=== PATIENT | male | born 1965 | race Two or more races ===

== ENCOUNTER → 2016-06-12 | Outpatient (CLI) | payer BC, OTHER ==
[2016-06-12 09:20] VITALS: BP 160/94
[2016-06-12 12:37] LABS: Basophils # (auto) 0.1 uL; Basophils % (auto) 0.6 % (0.0-2.0); Eosinophils # (auto) 0.3 uL; Eosinophils % (auto) 2.7 % (0.0-7.0); Hematocrit 43.7 % (41.0-53.0); Hemoglobin 14.4 g/dL (13.5-17.5); Lymphocytes # (auto) 2.2 uL; Lymphocytes % (auto) 22.9 % (10.0-50.0); Mean Corpuscular Hemoglobin 28.7 pg (28.0-32.0); Mean Corpuscular Hgb Conc. 32.9 g/dL (32.0-36.0); Mean Corpuscular Volume 87.2 fL (80.0-100.0); Mean Platelet Volume 7.9 fL (7.4-10.4); Monocytes # (auto) 0.5 uL; Monocytes % (auto) 4.9 % (0.0-12.0); Neutrophils # (auto) 6.6 uL; Neutrophils % (auto) 68.9 % (37.0-80.0); Platelet Count (auto) 341 10^3/uL (140-450); Red Cell Distribution Width 14.1 % (11.6-16.0); White Blood Cell 9.6 10^3/uL (4.4-10.8)
[2016-06-12 12:52] LABS: INR 1.08 (0.9-1.15); Partial Thromboplastin Time 27.7 sec (22.64-33.71); Prothrombin Time 11.1 sec (9.37-12.3)
[2016-06-12 13:04] LABS: BUN/Creatinine Ratio 12.2; Calcium 8.7 mg/dL (8.5-10.1); Potassium 3.1 mmol/L (3.5-5.1)
== END | disposition home or self-care (01) ==
LOC: Rad HDHVI 09:12
PROVIDERS: ATTEND Internal Medicine Cardiovascular Disease
DX: I10 Essential (primary) hypertension (principal); D64.9 Anemia, unspecified; R79.1 Abnormal coagulation profile
CPT/HCPCS: 36415; 71020; 80048; 85025; 85049; 85610; 85730; G0463

== ENCOUNTER 2016-06-15 08:35 | Inpatient (IN) | payer BC, OTHER ==
[~2016-06-15] VITALS: Ht 180.3 cm; Wt 119.3 kg
[~2016-06-15 08:35] MED LIST: AMLO10TA2 PO; ATOR10TA PO; BENA40TA2 PO; CARV80CA PO; CYCL1TAB18 PO; FURO40TA4 PO; IOHEXOL 350 MG/ML 100ML IJ ONE; LIDOCAINE 2%HCL (LOCAL ANESTH.) INJ 20ML MDV ONE; LOSA100T27 PO; METF-316 PO; NIAC500T71 PO; POTA20TA53 PO; TRAM100T37 PO
[2016-06-15] MEDS ORDERED: MIDAZOLAM HCL 1MG/1ML-2 ML VIAL ONE (09:48)
[2016-06-15] MEDS ORDERED: ANGIOMAX 250 MG VIAL IV ONE (09:48)
[2016-06-15] MEDS ORDERED: fentaNYL CITRATE 100 MCG/2 ML VL ONE (09:48)
[2016-06-15] MEDS ORDERED: SODIUM CHL 0.9% 50 ML ONE (09:49)
[2016-06-15] MEDS ORDERED: SODIUM CHLORIDE 0.9% 1,000 ML IV SCH (10:54)
[2016-06-15] MEDS ORDERED: NITROGLYCERIN 0.4 MG SL TAB SL PRN (11:00)
[2016-06-15] MEDS ORDERED: HYDROcodone-ACET 5/325MG TAB PO PRN (11:00)
[2016-06-15] MEDS ORDERED: ACETAMINOPHEN 500 MG TAB PO PRN (11:00)
[2016-06-15] MEDS ORDERED: TICAGRELOR 90 MG TAB PO ONE (11:00)
[2016-06-15] MEDS ORDERED: MORPHINE SULF INJ 2 MG/ML SYRINGE 1ML IV PRN (11:00)
[2016-06-15] MEDS ORDERED: TICAGRELOR 90 MG TAB ONE (11:02)
[2016-06-15] MEDS ORDERED: ASPirin 325 MG TAB ONE (11:08)
[2016-06-15] MEDS ORDERED: ASPirin 81 mg TAB PO ONE (11:15)
[2016-06-15 11:47] VITALS: BP 120/73
[2016-06-15 16:59] VITALS: BP 154/92
[2016-06-15] MEDS: TICAGRELOR 90 MG TAB PO SCH (21:53)
[2016-06-15 21:56] VITALS: BP 155/97
[2016-06-16 05:15] VITALS: BP 153/81
[2016-06-16 09:00] VITALS: BP 160/90
[2016-06-16] MEDS: TICAGRELOR 90 MG TAB PO SCH (09:55)
[2016-06-16 10:00] VITALS: BP 160/90
[2016-06-16] MEDS ORDERED: ASPirin 81 mg TAB PO SCH (10:00)
== END 2016-06-16 10:55 | disposition home or self-care (01) | DRG 247 ==
LOC: CATH 08:35 → TELE-CENTR 08:36
PROVIDERS: ADMIT Internal Medicine Cardiovascular Disease; ATTEND Internal Medicine Cardiovascular Disease
PROC: 027034Z Dilation of Coronary Artery, One Artery with Drug-eluting Intraluminal Device, Percutaneous Approach (ICD-10-PCS; principal; 2016-06-15)
PROC: 4A023N7 Measurement of Cardiac Sampling and Pressure, Left Heart, Percutaneous Approach (ICD-10-PCS; 2016-06-15)
PROC: B2111ZZ Fluoroscopy of Multiple Coronary Arteries using Low Osmolar Contrast (ICD-10-PCS; 2016-06-15)
DX: I25.10 Atherosclerotic heart disease of native coronary artery without angina pectoris (principal); I10 Essential (primary) hypertension; E11.21 Type 2 diabetes mellitus with diabetic nephropathy; E11.40 Type 2 diabetes mellitus with diabetic neuropathy, unspecified; E11.69 Type 2 diabetes mellitus with other specified complication; E66.9 Obesity, unspecified; E78.5 Hyperlipidemia, unspecified; Z82.49 Family history of ischemic heart disease and other diseases of the circulatory system; Z83.3 Family history of diabetes mellitus; Z68.36 Body mass index [BMI] 36.0-36.9, adult
CPT/HCPCS: 92928; 93458; J2250

== ENCOUNTER → 2016-11-01 | Outpatient (CLI) | payer BC, OTHER ==
[~2016-11-01] VITALS: Ht 177.8 cm; Wt 120.2 kg
[~2016-11-01] MED LIST changes: +ADENOSINE 101 MG in GIVE UN-DILUTED 0 ML IV ONE; +ADENOSINE 90 MG/30 ML INJ IV ONE; -BENA40TA2 PO; +BENA40TA7 PO; -IOHEXOL 350 MG/ML 100ML IJ ONE; -LIDOCAINE 2%HCL (LOCAL ANESTH.) INJ 20ML MDV ONE; -METF-316 PO; +METF-372 PO
== END | disposition home or self-care (01) ==
LOC: Rad HDHVI 13:58
PROVIDERS: ATTEND Internal Medicine Cardiovascular Disease
DX: I25.10 Atherosclerotic heart disease of native coronary artery without angina pectoris (principal); I10 Essential (primary) hypertension; E11.9 Type 2 diabetes mellitus without complications; Z98.61 Coronary angioplasty status
CPT/HCPCS: 78452; 93005; 96374; 96375; A9500; J0153

== ENCOUNTER → 2017-02-02 | Outpatient (CLI) | payer BC, OTHER ==
[~2017-02-02] MED LIST changes: -ADENOSINE 101 MG in GIVE UN-DILUTED 0 ML IV ONE; -ADENOSINE 90 MG/30 ML INJ IV ONE
[2017-02-02 09:00] VITALS: BP 171/93
[2017-02-02 09:30] VITALS: BP 142/88
== END | disposition home or self-care (01) ==
LOC: CHF HDHVI 08:10
PROVIDERS: ATTEND Internal Medicine Cardiovascular Disease
DX: Z01.810 Encounter for preprocedural cardiovascular examination (principal); I25.10 Atherosclerotic heart disease of native coronary artery without angina pectoris; I10 Essential (primary) hypertension; E66.9 Obesity, unspecified; R79.1 Abnormal coagulation profile; R97.20 Elevated prostate specific antigen [PSA]
CPT/HCPCS: 93005; G0463

== ENCOUNTER → 2017-10-26 | Outpatient (CLI) | payer BC, OTHER ==
[~2017-10-26] VITALS: Ht 180.3 cm; Wt 122.5 kg
[~2017-10-26] MED LIST changes: +ADENOSINE 103 MG in GIVE UN-DILUTED 0 ML IV ONE; +ADENOSINE 90 MG/30 ML INJ IV ONE
== END | disposition home or self-care (01) ==
LOC: Rad HDHVI 10:00
PROVIDERS: ATTEND Internal Medicine Cardiovascular Disease
DX: Z01.810 Encounter for preprocedural cardiovascular examination (principal); I10 Essential (primary) hypertension; E11.9 Type 2 diabetes mellitus without complications; I20.9 Angina pectoris, unspecified; Z98.61 Coronary angioplasty status
CPT/HCPCS: 78452; 93005; 96374; 96375; A9500; J0153

== ENCOUNTER 2018-07-26 14:24 | Emergency (ER) | payer BC, OTHER ==
[~2018-07-26] VITALS: Ht 177.8 cm; Wt 120.2 kg
[~2018-07-26 14:24] MED LIST changes: -ADENOSINE 103 MG in GIVE UN-DILUTED 0 ML IV ONE; -ADENOSINE 90 MG/30 ML INJ IV ONE; +AMLO10TA12 PO; -AMLO10TA2 PO; +LOSA-49 PO; -LOSA100T27 PO
[2018-07-26] MEDS ORDERED: cloNIDine HCL 0.1 MG TAB ONE (14:48)
[2018-07-26] MEDS ORDERED: cloNIDine HCL 0.1 MG TAB PO ONE (15:00)
[2018-07-26 15:09] LABS: Basophils # (auto) 0.1 uL; Basophils % (auto) 1.3 % (0.0-2.0); Eosinophils # (auto) 0.2 uL; Hematocrit 43.7 % (41.0-53.0); Hemoglobin 14.7 g/dL (13.5-17.5); Lymphocytes # (auto) 1.6 uL; Lymphocytes % (auto) 21.1 % (10.0-50.0); Mean Corpuscular Hemoglobin 29.2 pg (28.0-32.0); Mean Corpuscular Hgb Conc. 33.7 g/dL (32.0-36.0); Mean Corpuscular Volume 86.8 fL (80.0-100.0); Monocytes # (auto) 0.5 uL; Monocytes % (auto) 6.8 % (0.0-12.0); Neutrophils # (auto) 5.1 uL; Neutrophils % (auto) 67.8 % (37.0-80.0); Nucleated Red Blood Cells % 0.1 %; Platelet Count (auto) 310 10^3/uL (140-450); Red Blood Cells 5.03 10^6/uL (4.5-5.90); Red Cell Distribution Width 14.3 % (11.8-14.3); White Blood Cell 7.5 10^3/uL (4.4-10.8)
[2018-07-26 15:20] LABS: INR 1.01 (0.9-1.15); Partial Thromboplastin Time 28.2 sec (23.78-33.04); Prothrombin Time 10.8 sec (9.27-12.13)
[2018-07-26 15:26] LABS: Albumin 3.6 g/dL (3.4-5.0); Anion Gap 6 (5-15); Blood Urea Nitrogen 8 mg/dL (7-18); Calcium 8.2 mg/dL (8.5-10.1); Carbon Dioxide 32 mmol/L (21-32); Chloride 101 mmol/L (98-107); Glucose 168 mg/dL (74-106); Magnesium 2.1 mg/dL (1.6-2.6); Potassium 3.4 mmol/L (3.5-5.1); Sodium 139 mmol/L (136-145)
[2018-07-26] MEDS ORDERED: ASPirin 81 mg TAB PO ONE (15:30)
[2018-07-26 15:32] LABS: Alanine Aminotransferase 39 U/L (16-61); Alkaline Phosphatase 150 U/L (45-117); Aspartate Aminotransferase 25 U/L (15-37); BUN/Creatinine Ratio 10.3; Bilirubin, Total 1.2 mg/dL (0.2-1.0); GFR African American 133 mL/min; GFR Non-African American 110 mL/min; Total Protein 7.1 g/dL (6.4-8.2)
[2018-07-26 17:10] VITALS: BP 140/77
== END 2018-07-26 19:48 | disposition home or self-care (01) ==
LOC: ER 14:27
DX: I24.9 Acute ischemic heart disease, unspecified (principal); I11.0 Hypertensive heart disease with heart failure; I50.9 Heart failure, unspecified; E11.9 Type 2 diabetes mellitus without complications; Z86.73 Personal history of transient ischemic attack (TIA), and cerebral infarction without residual deficits; Z98.61 Coronary angioplasty status; Z79.899 Other long term (current) drug therapy
CPT/HCPCS: 36415; 71046; 80053; 83735; 83880; 84484; 85025; 85610; 85730; 93005

== ENCOUNTER → 2018-08-12 | Outpatient (CLI) | payer BC, OTHER ==
[~2018-08-12] MED LIST changes: +IOHEXOL 350 MG/ML 100ML IJ ONE
--- NOTE | 2018-08-12 16:15 | NUR ---
CHF IV insertion IV access obtained, via clean sterile technique by inserting 20 gauge catheter at after attempt(s). IV secured properly. No trauma to site. Patient tolerated procedure well.
[2018-08-12 16:20] VITALS: BP 153/95
--- NOTE | 2018-08-12 16:34 | NUR ---
IV removal IV DC'd with sterile technique, catheter fully intact. Pressure dressing applied to site. Patient tolerated procedure well. Discharged with aftercare instructions per MD. NOTE:
[2018-08-12 16:36] VITALS: BP 150/85
--- NOTE | 2018-08-12 16:36 | NUR ---
Discharge Instructions See e-MAR for any mediations given with this visit. Patient education given on disease process. Patient verbalized understanding. Previous labs reviewed. Patient discharged in stable condition with after care instructions and follow up appointment.
== END | disposition home or self-care (01) ==
LOC: Rad HDHVI 15:33
PROVIDERS: ATTEND Internal Medicine Cardiovascular Disease
DX: I20.9 Angina pectoris, unspecified (principal); R94.4 Abnormal results of kidney function studies; I11.0 Hypertensive heart disease with heart failure; I50.9 Heart failure, unspecified; E11.9 Type 2 diabetes mellitus without complications
CPT/HCPCS: 36415; 74175; 82565; 93306; G0463; Q9967

== ENCOUNTER → 2018-10-07 | Outpatient (CLI) | payer BC, OTHER ==
[~2018-10-07] MED LIST changes: -IOHEXOL 350 MG/ML 100ML IJ ONE
== END | disposition home or self-care (01) ==
LOC: Rad HDHVI 15:37
PROVIDERS: ATTEND Internal Medicine Cardiovascular Disease
DX: R06.02 Shortness of breath (principal)
CPT/HCPCS: 71046

== ENCOUNTER → 2018-10-08 | Outpatient (CLI) | payer BC, OTHER ==
[2018-10-08 12:24] LABS: Basophils # (auto) 0.1 uL; Basophils % (auto) 0.9 % (0.0-2.0); Eosinophils # (auto) 0.3 uL; Eosinophils % (auto) 3.3 % (0.0-7.0); Hematocrit 44.8 % (41.0-53.0); Hemoglobin 15.3 g/dL (13.5-17.5); Lymphocytes # (auto) 1.7 uL; Lymphocytes % (auto) 19.3 % (10.0-50.0); Mean Corpuscular Hemoglobin 29.4 pg (28.0-32.0); Mean Corpuscular Hgb Conc. 34.2 g/dL (32.0-36.0); Mean Corpuscular Volume 86.2 fL (80.0-100.0); Monocytes # (auto) 0.6 uL; Monocytes % (auto) 7.1 % (0.0-12.0); Neutrophils # (auto) 6.2 uL; Neutrophils % (auto) 69.4 % (37.0-80.0); Nucleated Red Blood Cells % 0.5 %; Platelet Count (auto) 263 10^3/uL (140-450); Red Cell Distribution Width 14.2 % (11.8-14.3); White Blood Cell 8.9 10^3/uL (4.4-10.8)
[2018-10-08 12:25] LABS: Urine Bacteria NONE SEEN /hpf (None Seen); Urine Blood Negative /uL (Negative); Urine Specific Gravity 1.011 (1.001-1.035); Urine WBC 1 /hpf (0 - 3)
[2018-10-08 12:40] LABS: INR 1.07 (0.9-1.15); Partial Thromboplastin Time 30.3 sec (23.78-33.04); Prothrombin Time 11.4 sec (9.27-12.13)
[2018-10-08 14:29] LABS: Albumin 3.6 g/dL (3.4-5.0); BUN/Creatinine Ratio 13.4; Bilirubin, Total 1.2 mg/dL (0.2-1.0); Calcium 8.5 mg/dL (8.5-10.1)
== END | disposition home or self-care (01) ==
LOC: LAB 08:43
PROVIDERS: ATTEND Internal Medicine Cardiovascular Disease
DX: Z01.812 Encounter for preprocedural laboratory examination (principal); E66.1 Drug-induced obesity; I11.0 Hypertensive heart disease with heart failure; I50.9 Heart failure, unspecified; E11.9 Type 2 diabetes mellitus without complications
CPT/HCPCS: 36415; 80053; 80061; 81001; 83036; 83735; 83970; 84436; 84443; 85025; 85610; 85730

== ENCOUNTER 2020-05-09 03:19 | Emergency (ER) | payer BC, OTHER ==
[~2020-05-09] VITALS: Ht 188 cm; Wt 81.6 kg
[~2020-05-09 03:19] MED LIST changes: -AMLO10TA12 PO; +AMLO10TA13 PO; +CYCL10TA6 PO; -CYCL1TAB18 PO; +LOSA-39 PO; -LOSA-49 PO; +POTA-220 PO; -POTA20TA53 PO
[2020-05-09 06:58] VITALS: BP 142/84
== END 2020-05-09 07:01 | disposition home or self-care (01) ==
LOC: ER 03:19 → EDBD 03:19 → ER 07:01
DX: S09.90XA Unspecified injury of head, initial encounter (principal); S01.01XA Laceration without foreign body of scalp, initial encounter; F10.920 Alcohol use, unspecified with intoxication, uncomplicated; I11.0 Hypertensive heart disease with heart failure; I50.9 Heart failure, unspecified; E11.9 Type 2 diabetes mellitus without complications; Z79.899 Other long term (current) drug therapy; W22.8XXA Striking against or struck by other objects, initial encounter; Y93.89 Activity, other specified; Y92.89 Other specified places as the place of occurrence of the external cause; Y99.8 Other external cause status
CPT/HCPCS: 12004; 70450; 72125

== ENCOUNTER 2023-10-04 12:55 | Emergency (ER) | payer BC ==
[~2023-10-04] VITALS: Ht 177.8 cm; Wt 83.6 kg
[~2023-10-04 12:55] MED LIST changes: -AMLO10TA13 PO; +AMLO1TAB23 PO; -BENA40TA7 PO; +BENA40TA71 PO; +CYCL-839 PO; -CYCL10TA6 PO; -LOSA-39 PO; +LOSA-535 PO; +TRAM100T32 PO; -TRAM100T37 PO
[2023-10-04 13:34] LABS: Urine Bacteria None Seen /hpf (None Seen)
[2023-10-04 14:03] LABS: Urine Blood TRACE /uL (Negative); Urine Clarity Clear (Clear); Urine Color Yellow (Yellow); Urine Mucus FEW (None Seen); Urine Protein, UAD 2+ (Negative); Urine Specific Gravity 1.036 (1.001-1.035); Urine Urobilinogen 3 mg/dL (Negative); Urine WBC 3 /hpf (0 - 3)
[2023-10-04] MEDS: cloNIDine HCL 0.1 MG TAB PO ONE (14:49)
[2023-10-04] MEDS: KETOROLAC TROMETH 60MG/2ML VIAL IM ONE (14:50)
[2023-10-04 15:04] LABS: Basophils # (auto) 0.1 10 ^3/uL (0-0.2); Basophils % (auto) 0.8 % (0.0-2.0); Eosinophils # (auto) 0 10 ^3/uL (0-0.8); Eosinophils % (auto) 0.1 % (0.0-7.0); Hematocrit 47.8 % (41.0-53.0); Hemoglobin 16.1 g/dL (13.5-17.5); Lymphocytes # (auto) 1.1 10 ^3/uL (0.4-5.4); Lymphocytes % (auto) 8.5 % (10.0-50.0); Mean Corpuscular Hemoglobin 28.4 pg (28.0-32.0); Mean Corpuscular Hgb Conc. 33.6 g/dL (32.0-36.0); Mean Corpuscular Volume 84.5 fL (80.0-100.0); Monocytes # (auto) 0.9 10 ^3/uL (0-1.3); Monocytes % (auto) 6.8 % (0.0-12.0); Neutrophils # (auto) 10.6 10 ^3/uL (1.6-8.6); Neutrophils % (auto) 83.8 % (37.0-80.0); Nucleated Red Blood Cells % 0.6 %; Red Blood Cells 5.66 10^6/uL (4.5-5.90); Red Cell Distribution Width 15.7 % (11.8-14.3); White Blood Cell 12.7 10^3/uL (4.4-10.8)
[2023-10-04] MEDS ORDERED: DICY10CA PO (15:46)
[2023-10-04] MEDS ORDERED: ACE3T PO (15:46)
[2023-10-04] MEDS ORDERED: CLON0.2T PO (15:46)
[2023-10-04 15:59] VITALS: BP 118/75; PULSE 99; RESP 17; TEMP 97.8; O2SAT 100
== END 2023-10-04 16:01 | disposition home or self-care (01) ==
LOC: ER 12:55
DX: R10.9 Unspecified abdominal pain (principal); I11.0 Hypertensive heart disease with heart failure; I50.9 Heart failure, unspecified; I25.10 Atherosclerotic heart disease of native coronary artery without angina pectoris; E11.9 Type 2 diabetes mellitus without complications; Z98.890 Other specified postprocedural states; Z79.899 Other long term (current) drug therapy
CPT/HCPCS: 36415; 74176; 81001; 83880; 85025; 96372; 99285; J1885